=== PATIENT | female | born 1990 | race Caucasian/White ===

== ENCOUNTER 2020-05-18 13:25 | Outpatient (CLI) | payer OTHER ==
[~2020-05-18] VITALS: Ht 154.9 cm; Wt 106.2 kg
--- NOTE | 2020-05-18 13:10 | NUR ---
BRENDAN SPRINGER presented to unit via AMBULATORY, accompanied by S/O FOR MONITORING. BRENDAN SPRINGER weighed, gowned, voided, and to bed. EFHM and TOCO applied, VS taken. BRENDAN SPRINGER oriented to bed controls, call light, TV, heat, and A/C controls.
[~2020-05-18 13:25] MED LIST: OMEP40CA27 PO; OXYC1TAB87 PO
[2020-05-18 13:40] VITALS: BP 127/61
--- NOTE | 2020-05-18 13:43 | NUR ---
DR. SIDHU CALLED UNIT, INFORMED THIS RN THAT SHE JUST SPOKE WITH M. DR PLANS TO BE BY AFTER CLINIC AND WILL DO A SPEC EXAM, PT WILL STAY OVERNIGHT FOR OBSERVATION.
[2020-05-18] MEDS ORDERED: INDOMETHACIN 25 MG (INDOCIN) CAP PO NR (13:45)
[2020-05-18] MEDS ORDERED: AMPICILLIN FOR IV USE 2,000 MG in WATER (STERILE) FOR INJECTION 14.8 ML IV NR (13:45)
[2020-05-18] MEDS ORDERED: BETAMETHASONE ACE/NA PHOS 6 MG/ML (CELESTONE SOLUSPAN) IM SCH (14:30)
[2020-05-18] MEDS ORDERED: LACTATED RINGERS 1,000 ML IV SCH (14:45)
[2020-05-18 15:40] LABS: HEMOGLOBIN 12.3 G/DL (11.5-16.0); MEAN PLATELET VOLUME 10.2 FL (7.4-10.4); RED CELL DISTRIBUTION WIDTH 13.9 % (10.0-14.5); WHITE BLOOD COUNT 8.5 10^3/uL (4.3-11.0)
[2020-05-18 15:48] LABS: ALBUMIN 3.8 GM/DL (3.2-4.5)
[2020-05-18 15:49] LABS: CHLORIDE 109 MMOL/L (98-107); POTASSIUM 3.7 MMOL/L (3.6-5.0); SODIUM 137 MMOL/L (135-145)
[2020-05-18 15:50] LABS: CALCIUM 8.8 MG/DL (8.5-10.1)
[2020-05-18] MEDS ORDERED: PREN-37 PO (15:50)
[2020-05-18 15:51] LABS: GLUCOSE 113 MG/DL (70-105); TOTAL PROTEIN 6.9 GM/DL (6.4-8.2)
[2020-05-18 15:52] LABS: CARBON DIOXIDE 17 MMOL/L (21-32)
[2020-05-18 15:53] LABS: BILIRUBIN,TOTAL 0.4 MG/DL (0.1-1.0)
[2020-05-18 15:54] LABS: ALKALINE PHOSPHATASE 62 U/L (40-136)
[2020-05-18 15:55] LABS: CREATININE SERUM 0.57 MG/DL (0.60-1.30); GFR ESTIMATED > 60
[2020-05-18 15:56] LABS: BUN/CREATININE RATIO 11
[2020-05-18 15:58] LABS: ALANINE AMINOTRANSFERASE 16 U/L (0-55)
--- NOTE | 2020-05-18 15:58 | Short Stay Summary ---
History of Present Illness History of Present Illness Reason for visit/HPI 30 yo G1 at 23w6d had US today for follow up on low lying placenta and was noted to have short cervix (1.65 cm) with funneling membranes, possible herniation of amniotic membranes into vagina. She denied feeling any contractions, has had had no vaginal bleeding. Admitted one episode of fluid leaking 2 days ago during the night one time that was clear, she started using a pantiliner after that and noted small amount of yellowish discharge/liquid, no further gushes. Date of Admission 05/18/2020 Date of Discharge 05/18/2020 Time Seen by Provider: 15:40 Attending Physician Cong Sidhu MD Admitting Physician Jacqueline Rob DO Consult Allergies and Home Medications Allergies Uncoded Allergies: VIT C (Allergy, Intermediate, HIVES, 02/05/16) Home Medications Vit/Iron Fumarate/FA 1 Each Tablet, 1 EACH PO DAILY, (Reported) Patient Home Medication List Home Medication List Reviewed: Yes Past Zlvyyxn-Ithnok-Zshzfg Hx Patient Social History Alcohol Use: Denies Use Recreational Drug Use: No Smoking Status: Never a Smoker Surgeries Gallbladder Reproductive System : Yes Expected Date of Delivery: Sep 08, 2020 Hx : 1 Hx Para: 0 Hx Reproductive Disorders: Yes (HX PCOS) Sexually Transmitted Disease: No HIV/AIDS: No Female Reproductive Disorders: Polycystic Ovarian Dis Gastrointestinal Gastroesophageal Reflux, Gall Bladder Disease HEENT Loss of Vision: Denies Hearing Impairment: Denies Blood Transfusions Adverse Reaction to a Blood Tr: No Review of Systems Constitutional: No fever Respiratory: No cough, No short of breath Gastrointestinal: No abdominal pain Genitourinary: no symptoms reported Physical Exam Vital Signs Capillary Refill : Height, Weight, BMI Height: 5'1.00" Weight: 210lbs. 0.0oz. [id number]; 34.94 BMI Method: General Appearance: No Apparent Distress, WD/WN Gastrointestinal: Non Tender Genital/Rectal: Other (sterile speculum exam revealed mercer membranes bulging through cervix, unable to appreciate degree of cervical dilation, possibly 1-2 cm, did not appear markedly dilated but view obscured by membranes) Neurologic/Psychiatric: Alert, Oriented x3 Skin: Normal Color, Warm/Dry Short Stay Diagnosis Discharge Diagnosis-Short Stay Admission Diagnosis: Funneling membranes through external cervical os Short cervix 1.65 cm 23 weeks gestation Final Discharge Diagnosis: Funneling membranes through external cervical os Short cervix 1.65 cm 23 weeks gestation Conclusion Labs Laboratory Tests 05/18/20 15:10: White Blood Count 8.5, Red Blood Count 3.87L, Hemoglobin 12.3, Hematocrit 34L, Mean Corpuscular Volume 88, Mean Corpuscular Hemoglobin 32, Mean Corpuscular Hemoglobin Concent 36, Red Cell Distribution Width 13.9, Platelet Count 202, Mean Platelet Volume 10.2, Sodium Level 137, Potassium Level 3.7, Chloride Level 109H, Carbon Dioxide Level 17L, Anion Gap 11, Glucose Level 113H, Calcium Level 8.8, Corrected Calcium 9.0, Total Protein 6.9, Albumin 3.8 Conclusion/Plan G1 at 23w6d with incidentally found short cervix on US today with funneling membranes, sterile spec exam revealed membranes protruding into vagina. Given 12 mg betamethasone, 100 mg indomethacin and 2 grams ampicillin. Transferred to facility with NICU availability ([facility]). CONG SIDHU MD May 18, 2020 15:58
--- NOTE | 2020-05-18 17:25 | NUR ---
REPORT CALLED OVER TO [facility], SPOKE TO YUSUF GLASS RN.
--- NOTE | 2020-05-18 17:28 | NUR ---
[facility] NOTIFIED OF NEED FOR TRANSPORT.
--- NOTE | 2020-05-18 18:05 | NUR ---
REPORT TO NIKKIE WITH [facility].
--- NOTE | 2020-05-18 18:15 | NUR ---
PT DISCHARGED FROM -315 TO [facility] VIA CART IN STABLE CONDITION ACC BY [facility]. PT HEADING OVER TO [facility] [place].
[2020-05-18 19:45] VITALS: BP 127/61
[2020-05-18] MEDS ORDERED: INDOMETHACIN 25 MG (INDOCIN) CAP PO SCH (20:00)
== END 2020-05-18 18:15 | disposition designated cancer center or children's hospital (05) ==
LOC: WSo 13:25 → LDRP 13:27 → WSo 18:15
PROVIDERS: ATTEND Family Medicine
DX: O44.42 Low lying placenta NOS or without hemorrhage, second trimester (principal); Z3A.23 23 weeks gestation of pregnancy
CPT/HCPCS: 36415; 80053; 85027; 96361; 96372; 96374